=== PATIENT | male | born 1990 | race African-American/Black ===

== ENCOUNTER 2021-10-29 07:38 | Emergency (ER) | payer BC, OTHER ==
[~2021-10-29] VITALS: Ht 177.8 cm; Wt 75.0 kg
[2021-10-29 08:18] LABS: BASOPHILS % (AUTO) 0.5 % (0.0-2.0); EOSINOPHILS % (AUTO) 0.2 % (1.0-6.0); HEMOGLOBIN 14.3 g/dL (13.5-17.5); LYMPHOCYTES % (AUTO) 34.3 % (22.0-44.0); MEAN CORPUSCULAR HEMOGLOBIN 25.5 pg (26.0-34.0); MEAN CORPUSCULAR HGB CONC 32.6 G/dL (31.0-37.0); MEAN CORPUSCULAR VOLUME 78 fL (80-100); MONOCYTES # (AUTO) 0.5 K/uL (0.1-1.0); MONOCYTES % (AUTO) 16.8 % (2.0-9.0); NEUTROPHILS # (AUTO) 1.3 K/uL (1.8-7.7); NEUTROPHILS % (AUTO) 48.2 % (40.0-70.0); PLATELET COUNT (AUTO) 194 K/uL (150-450); RED BLOOD CELL COUNT(AUTO) 5.62 MIL/uL (4.50-5.90); RED CELL DISTRIBUTION WIDTH 13.6 % (11.5-14.5)
[2021-10-29 08:29] LABS: ANION GAP 10 mmol/L (8-16); CARBON DIOXIDE 28 mmol/L (22-29); CHLORIDE 101 mmol/L (98-107); CREATININE 0.91 mg/dL (0.60-1.30); GLUCOSE,RANDOM 110 mg/dL (70-110); SODIUM SERUM 139 mmol/L (136-145); UREA NITROGEN, BLOOD 10 mg/dL (7-18)
[2021-10-29 08:30] LABS: CALCIUM, TOTAL 9.4 mg/dL (8.8-10.5); GLOMERULAR FILTR. RATE CALC > 60 mL/min (>60)
[2021-10-29 08:35] LABS: ALANINE AMINOTRANSFERASE 41 U/L (12-78); ALBUMIN 4.3 g/dL (3.4-5.0); ALKALINE PHOSPHATASE 55 U/L (46-116); ASPARTATE AMINOTRANSFERASE 32 U/L (15-37); BILIRUBIN,TOTAL 0.4 mg/dL (0.1-1.0); TOTAL PROTEIN, SERUM 7.7 g/dL (6.4-8.2)
[2021-10-29 09:03] LABS: APPEARANCE,URINE CLEAR (CLEAR); BILIRUBIN,URINE NEGATIVE (NEGATIVE); GLUCOSE, URINE (UA) NEGATIVE (NEGATIVE); KETONES,URINE NEGATIVE (NEGATIVE); LEUKOCYTE ESTERASE ,URINE NEGATIVE (NEGATIVE); NITRATE,URINE NEGATIVE (NEGATIVE); OCCULT BLOOD,URINE MODERATE (NEGATIVE); PROTEIN,URINE TRACE mg/dL (NEGATIVE); SPECIFIC GRAVITIY, URINE 1.022 (1.003-1.030); UROBILINOGEN,URINE <=1.0 mg/dL (<=1.0)
[2021-10-29 09:12] LABS: BACTERIA,URINE None Seen /HPF (None Seen); WBC,URINE None Seen /HPF (0-5)
[2021-10-29 11:43] VITALS: BP 126/88
== END 2021-10-29 11:45 | disposition home or self-care (01) ==
LOC: EMS 07:41
DX: R10.9 Unspecified abdominal pain (principal); R31.9 Hematuria, unspecified; F12.10 Cannabis abuse, uncomplicated; F10.20 Alcohol dependence, uncomplicated
CPT/HCPCS: 74176; 80053; 81001; 85025; 99284

== ENCOUNTER 2022-09-24 14:27 | Emergency (ER) | payer BC, OTHER ==
[~2022-09-24] VITALS: Ht 175.3 cm; Wt 81.8 kg
[2022-09-24 17:09] VITALS: BP 122/74
[2022-09-24] MEDS ORDERED: AMOX1TAB16 PO (17:10)
== END 2022-09-24 17:30 | disposition home or self-care (01) ==
LOC: EMS 14:50
DX: L03.211 Cellulitis of face (principal); F10.20 Alcohol dependence, uncomplicated; F12.90 Cannabis use, unspecified, uncomplicated
CPT/HCPCS: 70486; 99284; Z7502

== ENCOUNTER 2023-04-15 15:12 | Emergency (ER) | payer BC, OTHER ==
[~2023-04-15] VITALS: Ht 175.3 cm; Wt 79.5 kg
[~2023-04-15 15:12] MED LIST: AMOX1TAB16 PO
[2023-04-15 15:20] VITALS: TEMP 98.6
[2023-04-15] MEDS ORDERED: HYDR-4723 PO (17:07)
[2023-04-15 17:31] VITALS: BP 126/71; PULSE 98; RESP 16
== END 2023-04-15 17:35 | disposition home or self-care (01) ==
LOC: EMS 15:12
DX: S62.337A Displaced fracture of neck of fifth metacarpal bone, left hand, initial encounter for closed fracture (principal); F10.20 Alcohol dependence, uncomplicated; F12.90 Cannabis use, unspecified, uncomplicated; Y08.89XA Assault by other specified means, initial encounter; Y93.89 Activity, other specified; Y92.89 Other specified places as the place of occurrence of the external cause; Y99.8 Other external cause status; Y90.9 Presence of alcohol in blood, level not specified
CPT/HCPCS: 99283

== ENCOUNTER 2023-05-09 23:03 | Emergency (ER) | payer OTHER ==
[~2023-05-09] VITALS: Ht 175.3 cm; Wt 87.0 kg
[~2023-05-09 23:03] MED LIST changes: -AMOX1TAB16 PO; +HYDR-4723 PO
[2023-05-09 23:19] VITALS: BP 120/74; PULSE 72; RESP 17; TEMP 98.4
[2023-05-09] MEDS ORDERED: TOBRAMYCIN/DEXAMETHASONE 5 ML OPHTHALMIC SUSPENSION OU ONE (23:45)
[2023-05-10] MEDS ORDERED: TOBR5DRO43 OU (00:02)
== END 2023-05-10 00:19 | disposition home or self-care (01) ==
LOC: EMS 23:04
DX: H10.32 Unspecified acute conjunctivitis, left eye (principal); F10.20 Alcohol dependence, uncomplicated; F12.90 Cannabis use, unspecified, uncomplicated; Y90.9 Presence of alcohol in blood, level not specified
CPT/HCPCS: 99283

== ENCOUNTER 2025-01-02 18:00 | Emergency (ER) | payer BC, MEDICAID, OTHER ==
[~2025-01-02] VITALS: Ht 175.3 cm; Wt 75.0 kg
[~2025-01-02 18:00] MED LIST changes: +HYDR-4062 PO; -HYDR-4723 PO; +TOBR5DRO43 OU
[2025-01-02 18:12] VITALS: BP 137/85; PULSE 104; RESP 22; TEMP 98.3; O2SAT 100
[2025-01-02] MEDS ORDERED: IBUP-1554 PO (20:18)
[2025-01-02] MEDS ORDERED: ACET-66 PO (20:18)
== END 2025-01-02 20:37 | disposition home or self-care (01) ==
LOC: EMS 18:00
DX: S62.336A Displaced fracture of neck of fifth metacarpal bone, right hand, initial encounter for closed fracture (principal); F12.90 Cannabis use, unspecified, uncomplicated; F10.90 Alcohol use, unspecified, uncomplicated; W22.09XA Striking against other stationary object, initial encounter; Y93.89 Activity, other specified; Y92.89 Other specified places as the place of occurrence of the external cause; Y99.8 Other external cause status; Y90.9 Presence of alcohol in blood, level not specified
CPT/HCPCS: 99283